=== PATIENT | male | born 2000 | race Caucasian/White ===

== ENCOUNTER 2024-08-22 19:34 | Emergency (ER) | payer MEDICAID ==
[~2024-08-22] VITALS: Ht 157.5 cm; Wt 63.5 kg
[2024-08-22 20:40] VITALS: BP 138/94; TEMP 98.4
[2024-08-22] MEDS ORDERED: IBUPROFEN 600 MG TABLET ONE (20:41)
[2024-08-22] MEDS: IBUPROFEN 600 MG TABLET PO ONE (20:44)
[2024-08-22 22:01] VITALS: O2SAT 99
== END 2024-08-22 22:12 | disposition home or self-care (01) ==
LOC: ER 19:37
DX: M25.561 Pain in right knee (principal); W18.39XA Other fall on same level, initial encounter; Y93.66 Activity, soccer; Y92.89 Other specified places as the place of occurrence of the external cause; Y99.8 Other external cause status
CPT/HCPCS: 73564-TC